=== PATIENT | male | born 1970 | race Two or more races ===

== ENCOUNTER 2021-12-27 06:49 | Day surgery (SDC) | payer MEDICAID ==
[~2021-12-27] VITALS: Ht 188 cm; Wt 86.2 kg
[~2021-12-27 06:49] MED LIST: AMIO200T33 PO; APIX5TAB PO; FURO40TA4 PO; METO25TA93 PO; PANT40T PO; SACU1TAB PO
[2021-12-27] MEDS ORDERED: LIDOCAINE VISCOUS 2% 15ML UD MT ONE (07:15)
[2021-12-27] MEDS ORDERED: fentaNYL CITRATE 100 MCG/2 ML VL IV ONE (07:15)
[2021-12-27] MEDS ORDERED: MIDAZOLAM HCL 2MG/2ML 2ml VIAL (1mg/ml) IV ONE (07:15)
[2021-12-27 09:06] VITALS: BP 123/72
== END 2021-12-27 10:25 | disposition home or self-care (01) ==
LOC: CATH 06:49
PROVIDERS: ATTEND Internal Medicine Cardiovascular Disease
DX: I05.1 Rheumatic mitral insufficiency (principal); I48.91 Unspecified atrial fibrillation; I27.20 Pulmonary hypertension, unspecified; E78.5 Hyperlipidemia, unspecified; I50.30 Unspecified diastolic (congestive) heart failure; I35.9 Nonrheumatic aortic valve disorder, unspecified; Z86.73 Personal history of transient ischemic attack (TIA), and cerebral infarction without residual deficits; Z82.49 Family history of ischemic heart disease and other diseases of the circulatory system; Z87.891 Personal history of nicotine dependence; Z20.822 Contact with and (suspected) exposure to COVID-19
CPT/HCPCS: 93312; J2250; J3010; U0003; 99152

== ENCOUNTER 2022-01-03 06:09 | Day surgery (SDC) | payer MEDICAID ==
[2022-01-03] VITALS (8 sets, daily range): BP systolic 115–139; BP diastolic 69–89
[2022-01-03] MEDS ORDERED: SODIUM CHL 0.9% 0 ML ONE (07:26)
[2022-01-03] MEDS ORDERED: NITROGLYCERIN 5MG/ML 10ML VIAL IV ONE (07:26)
[2022-01-03] MEDS ORDERED: IODIXANOL 320MG/ML 100ML BTL IV ONE (07:35)
[2022-01-03] MEDS ORDERED: LIDOCAINE 2%HCL (LOCAL ANESTH.) INJ 10ml MDV ONE (07:35)
[2022-01-03] MEDS ORDERED: HEPARIN IN NS 1000Units/500mL 1,500 ML ONE (07:36)
[2022-01-03] MEDS ORDERED: MIDAZOLAM HCL 2MG/2ML 2ml VIAL (1mg/ml) ONE (07:43)
[2022-01-03] MEDS ORDERED: HEPARIN SODIUM (PORCINE) 5000 UNITS/ML 1ML VIAL ONE (07:43)
[2022-01-03] MEDS ORDERED: fentaNYL CITRATE 100 MCG/2 ML VL ONE (07:43)
[2022-01-03] MEDS ORDERED: VERAPAMIL 2.5MG/ML INJ 2ML VIAL IV ONE (07:43)
[2022-01-03] MEDS ORDERED: ANGIOMAX 250 MG VIAL IV ONE (07:43)
[2022-01-03] MEDS ORDERED: SODIUM CHL 0.9% 50 ML ONE (07:44)
== END 2022-01-03 11:57 | disposition home or self-care (01) ==
LOC: CATH 06:09
PROVIDERS: ATTEND Internal Medicine Cardiovascular Disease
DX: R94.39 Abnormal result of other cardiovascular function study (principal); I25.10 Atherosclerotic heart disease of native coronary artery without angina pectoris; I42.8 Other cardiomyopathies; I05.0 Rheumatic mitral stenosis; E78.5 Hyperlipidemia, unspecified; Z82.49 Family history of ischemic heart disease and other diseases of the circulatory system; Z86.73 Personal history of transient ischemic attack (TIA), and cerebral infarction without residual deficits; Z87.891 Personal history of nicotine dependence; Z20.822 Contact with and (suspected) exposure to COVID-19; Z79.02 Long term (current) use of antithrombotics/antiplatelets
CPT/HCPCS: 93460; C1751; C1760; C1887; C1894; J1644; J2001; J2250; J3010; J3490; J7030; Q9967; 99152; 99153